=== PATIENT | female | born 1950 | race Caucasian/White ===

== ENCOUNTER → 2017-10-29 10:39 | Outpatient (CLI) | payer BC, MEDICARE, SELFPAY ==
--- NOTE | 2017-10-29 10:47 | MM_ITS ---
. MM Dig screening mamm BI w/CAD CAD Screening ORDERING PHYSICIAN : Trina Shaffer PATIENT AGE: 67 years GENDER: Female COMPARISON: Previous mammograms: August 2016, July 2016. Also bilateral breast ultrasound August 2016. INDICATION: TECHNIQUE: Standard CC and MLO images were obtained. R2 CAD reviewed. FINDINGS: Nodular areas right breast. Observed. Otherwise minimal fibroglandular elements a relatively low-density breast. Benign scattered calcifications bilaterally again noted. No new masses or architectural distortion no suspicious new calcifications. RIGHT BREAST:No new findings of significant concern on the right. 2 areas of Nodularity at the lateral right breast is again observed and similar to previous studies overall.. 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 Between the multiple images the more anterior slightly lobulated nodule with central lucency measures nearly 9 mm length.. Similar size when compared to the diagnostic spot view images and exam from of August 2016.. Similarly the second nodule just posterior to this measuring just less than 9 mm length appears stable in configuration and appearance. LEFT BREAST: Left breast appears stable as well. Areas of minimal density in the left seem to dissipate from one view to another. No worrisome or progressive findings.. ========IMPRESSION: No significant interval change RIGHT BREAST: Nodular densities at lateral right breast similar to previous studies 2016. Given the stability Follow-up in not over one year adequate. LEFT BREAST: Stable appearance with no new areas of concern. Follow-up in one year recommended BI-RADS Category: 2 Benign Finding(s) RECOMMENDED FOLLOW-UP: 1YR - 1 YEAR FOLLOW-UP (A letter has been sent to the patient regarding results of the study.)
== END ==
PROVIDERS: Family Provider Nurse Practitioner Acute Care; PCP Nurse Practitioner Family; Visit Provider Nurse Practitioner Family
DX: Z12.31 Encounter for screening mammogram for malignant neoplasm of breast (principal)
CPT/HCPCS: 77067

== ENCOUNTER → 2018-05-03 15:17 | Outpatient (CLI) | payer BC, SELFPAY ==
--- NOTE | 2018-05-03 15:22 | CT_ITS ---
EXAM: CT LUNG LOW DOSE WO CONTRAST COMPARISON: None HISTORY: Currently smoking. One pack per day for 50 years, = 50 pack-year history TECHNIQUE: Exam was performed on a GE Light Speed [address] scanner using 3.0 mGy CTDI. A low dose helical CT CHEST was performed on a multi-detector scanner. All CT scans at this facility use one or more dose reduction techniques, viz.: automated exposure control, ma/kV adjustment per patient size (including targeted exams where dose is matched to indication, i.e. head) or iterative reconstruction technique. The LDCT was performed in a facility that meets the criteria for the screening program. Data regarding this exam was submitted to ACR which is an approved registry. The order for this exam indicates that it came as a result of a lung cancer screening counseling shard decision-making visit that included all the elements required of such a visit including smoking cessation. The radiologist interpreting this exam meets the CMS criteria for the LDCT lung cancer screening program. The exam is reported using the Lung-RADS classification scale and reported to the ACR registry. NOTE: This study was performed for the specific purposes of lung cancer screening and is not an alternative to diagnostic chest CT. RADIATION DOSE: CTDI vol(CT dose Index-volume) = 2.9mGy DLP (Dose Length Product) = 109.42 mGy-cm FINDINGS: No suspicious or worrisome lung nodules are evident. No lung masses of concern. Indeterminate/Non-actionable Nodules(Category2): . Tiny 3.5 mm nodular density is seen at the periphery of the right upper lobe just above the minor fissure. May be a benign fissural nodule. One-year follow-up adequate here. LUNG PARENCHYMA Emphysema: Only scant questionable mild centrilobular emphysematous changes No significant airway disease. Calcified hilar nodes on the right reflect over elements disease. Minimal. No hilar or mediastinal adenopathy. Of significance. The heart is normal in size. Aorta normal caliber. The chest wall unremarkable. Upper abdomen. Left adrenal nodule. Measures low-density most compatible with Benign 15 mm left benign nonfunctioning adrenal adenoma. .. Suspect sludge in gallbladder . IMPRESSION: 1. Lung RADS Category: 2 Follow-upLDCT one year recommended Tiny 3.5 mm likely benign RUL nodule along the superior margin of minor fissure . No suspicious nodules or findings. 2. Only scant if any early emphysematous changes 3. 15 mm left adrenal nodule most compatible with benign low-density nonfunctioning adrenal adenoma. Can be followed RECOMMENDATIONS: 12 month LDCT follow-up
== END ==
PROVIDERS: Family Provider Nurse Practitioner Acute Care; PCP Nurse Practitioner Family; Visit Provider Nurse Practitioner Family
DX: Z12.2 Encounter for screening for malignant neoplasm of respiratory organs (principal); Z87.891 Personal history of nicotine dependence

== ENCOUNTER → 2018-11-22 14:03 | Outpatient (CLI) | payer BC, SELFPAY ==
--- NOTE | 2018-11-22 14:10 | MM_ITS ---
MM Dig screening mamm BI w/CAD ORDERING PHYSICIAN : Davina Fung PATIENT AGE: 68 years GENDER: Female COMPARISON: October 2017, August 2016 and July 2016 INDICATION: Routine: SCREENING no hormones for past 10 years. No new complaints noncontributory family history. TECHNIQUE: Standard CC and MLO images were obtained. R2 CAD reviewed. FINDINGS: . Minimal residual fibroglandular elements with fairly stable appearing nodular densities right breast. Scattered benign calcifications again seen in both breasts. RIGHT BREAST: No significant new findings Again see the 2 stable ovoid nodular densities at the lateral left breast-no significant change since 2016 exams. Reviewing prior ultrasound from 2016 one of these could be a fibroadenoma rather than cyst but given its long-term stability and similar measurements it can be followed Safely LEFT BREAST:. No new findings at the left breast. Subtle area of nodularity at the retroareolar region again observed and stable. Follow-up in one year. Benign calcifications again observed and stable. IMPRESSION: . No significant new findings. What appear to be benign densities and features have remain stable since 2016 and can be followed safely in one year.. Bilateral follow-up one year recommended-but should be encouraged and emphasized BI-RADS Category: 2 Benign Finding(s) RECOMMENDED FOLLOW-UP: 1YR 1 YEAR FOLLOW-UP (A letter has been sent to the patient regarding results of the study.)
== END ==
PROVIDERS: PCP Nurse Practitioner Family; Visit Provider Nurse Practitioner Family
DX: Z12.31 Encounter for screening mammogram for malignant neoplasm of breast (principal)
CPT/HCPCS: 77067

== ENCOUNTER → 2019-10-05 14:45 | Outpatient (CLI) | payer BC, SELFPAY ==
--- NOTE | 2019-10-05 15:04 | CT_ITS ---
PROCEDURE: CT LUNG SCREENING CLINICAL INDICATION: H/O NICOTINE DEPENDENCE COMPARISON: No exams were available for comparison TECHNIQUE: The exam was performed on a GE Light Speed [address] scanner using 2.90 mGy CTDI. A low dose helical CT CHEST was performed on a multi-detector scanner. All CT scans at the facility use one or more dose reduction, viz: automated exposure control, ma/kV adjustment per patient size (including targeted exams where dose is matched to indication, i.e. head), or iterative reconstruction technique. The LDCT was performed in a facility that meets the criteria for the screening program. Data regarding this exam was submitted to ACR which is an approved registry. The order for this exam indicates that it came as a result of a lung cancer screening counseling shard decision-making visit that included all the elements required of such a visit including smoking cessation. The radiologist interpreting this exam meets the CMS criteria for the LDCT lung cancer screening program. The exam is reported using the Lung-RADS classification scale and reported to the ACR registry. NOTE: This study was performed for the specific purposes of lung cancer screening and is not an alternative to diagnostic chest CT. RADIATION DOSE: CTDI vol(CT dose Index-volume) = 2.90mG DLP (Dose Length Product) = 94.55 mGcm Lung Rads Category: Two FINDINGS: There is an up to 3.7 millimeter indeterminate pulmonary nodule in the right lung apex image 10 series 4.2 millimeter on is seen in the lateral right upper lobe image 30 series 4. calcified bilateral hilar and subcarinal lymph nodes are noted indicating granulomatous disease. It is possible the pulmonary nodules are noncalcified granulomas. Calcified splenic granulomas are noted. A 1.9 x 1.9 centimeter left adrenal mass is noted. This measures -27. 8 HU and may represent a benign adenoma or adrenal myelolipoma OTHER FINDINGS: A small amount of coronary calcification is noted. IMPRESSION: Primary category 2 right-sided pulmonary nodules with a low likelihood of malignancy. Annual screening low-dose CT in 12 months is recommended for these lesions. Left adrenal mass probably benign. Dictated by: Fernando Shaw 10/05/2019 17:14 Electronically signed by Fernando Shaw in [place] 10/05/2019 17:14
== END ==
PROVIDERS: PCP Nurse Practitioner Family; Visit Provider Nurse Practitioner Family
DX: Z87.891 Personal history of nicotine dependence (principal); Z12.2 Encounter for screening for malignant neoplasm of respiratory organs

== ENCOUNTER → 2020-02-07 15:22 | Outpatient (CLI) | payer BC, SELFPAY ==
--- NOTE | 2020-02-07 15:27 | MM_ITS ---
PROCEDURE: MM DIG SCREENING MAMM BI W/CAD DIGITAL BREAST TOMOSYNTHESIS INCLUDED Patient Age:69Y CLINICAL INDICATION: SCREENING [employer] COMPARISON: [facility] DIG MAMM-SCREEN JOHN from 08/08/2016 [facility] DIG MAMM- JOHN ADD VIEWS from 08/26/2016 BR US BREAST-RT COMPLETE W/AXILLA from 08/26/2016 BL US BREAST-LT COMPLETE W/AXILLA from 08/26/2016 [facility] MM Dig screening mamm BI w/CAD from 10/29/2017 [facility] MM Dig screening mamm BI w/CAD from 11/22/2018 CT LUNG SCREENING from 10/05/2019 TECHNIQUE: Standard CC and MLO images were obtained. R2 CAD reviewed. Bilateral digital breast tomosynthesis included. FINDINGS: Mild/moderate density breast with residual fibroglandular elements at the central breast anteriorly behind nipple right breast... No suspicious calcifications; only scattered small benign-appearing dense punctate calcifications bilaterally. A few stable larger calcifications as well. Right breast two stable ovoid nodular densities lateral right breast. Each measuring nearly 9 mm maximally with no significant change since studies dating back to 2016. Also note on today's tomosynthesis both these nodules demonstrate overall fairly smooth margin of supporting benign feature. Previous ultrasound suggested probable fibroadenoma 2016 Left breast. No new areas of concern. Stable larger benign round dense calcifications. Not of concern. The stable architecture. No mass lesion IMPRESSION: . Stable bilateral mammogram. No significant new findings. Two stable ovoid nodular densities lateral left breast unchanged since 2016 can be followed safely Bilateral follow-up 1 year recommended . BI-RAD Category: 2 Benign Finding(s) FOLLOW-UP: 1YR 1 Year Follow-up (A letter has been sent to the patient regarding results of the study.) Dictated by: Jose J Thompson MD 02/14/2020 15:01 Electronically signed by Jose J Thompson MD in [place] 02/14/2020 15:01
== END ==
PROVIDERS: PCP Nurse Practitioner Family; Visit Provider Nurse Practitioner Family
DX: Z12.31 Encounter for screening mammogram for malignant neoplasm of breast (principal)
CPT/HCPCS: 77063; 77067

== ENCOUNTER → 2020-10-03 11:11 | Outpatient (CLI) | payer MEDICARE, BC, OTHER, SELFPAY ==
[2020-10-03 13:30] LABS: C-Reactive Protein 5.3 mg/L (0-4)
[2020-10-03 15:31] LABS: Erythrocyte Sedimentation Rate 25 mm/hr (0-30)
[2020-10-05 11:32] LABS: RA Latex Turbid. <10.0 IU/mL (0.0-13.9)
[2020-10-07 14:07] LABS: QuantiFERON-TB Gold Plus Negative (Negative)
[2020-10-08 11:14] LABS: Antinuclear Antibodies, IFA Negative (.)
== END ==
PROVIDERS: Visit Provider Ophthalmology
DX: H20.042 Secondary noninfectious iridocyclitis, left eye (principal)
CPT/HCPCS: 36415; 85651; 86038; 86140; 86431; 86480

== ENCOUNTER → 2021-02-19 12:59 | Outpatient (CLI) | payer MEDICARE, OTHER, SELFPAY ==
--- NOTE | 2021-02-19 13:04 | MM_ITS ---
PROCEDURE INFORMATION: Exam: MG Screening 3D Mammography Exam date and time: 02/19/2021 1:04 PM Age: 70 years old Clinical indication: Encounter for screening mammogram for malignant neoplasm of breast TECHNIQUE: Imaging protocol: Screening tomosynthesis and 2D mammography including computer-aided detection (CAD) when performed. COMPARISON: 1. MG MM DIG SCREENING MAMM BI W/CAD 02/07/2020 3:35 PM 2. MG [facility] MM Dig screening mamm BI w/CAD 11/22/2018 2:37 PM FINDINGS: MAMMOGRAPHY: Breast composition: The breast tissue is composed of scattered areas of fibroglandular density. Mass: None. Architectural distortion: None. Calcifications: No suspicious calcifications. Asymmetric density: None. Skin thickening: None. Axillary adenopathy: None. IMPRESSION: No mammographic evidence of malignancy. Annual screening is recommended unless otherwise clinically indicated. ASSESSMENT: BI-RADS Category 1: Negative
--- NOTE | 2021-02-19 13:04 | XR_ITS ---
PROCEDURE: XR DEXA AXIAL SKELETON CLINICAL HISTORY: OSTEOPOROSIS COMPARISON: CR BONE3 BONE DENSITOMETRY(HIP:LT SPINE from 08/08/2016 FINDINGS: The right hip BMD is 0.651 with a T-score of -1.8. The left hip BMD is 0.700 with a T-score of -2.0. The lumbar spine BMD is 0.787 with a T-score of -2.4. Previously the lowest bone density was in the lumbar spine with a T-score -2.5. IMPRESSION: This patient is considered osteopenic according to the World Health Organization criteria. Bone density is between 10 and 25 percent below young normal. Fracture risk is moderate. Treatment is advised. Based on these results a follow-up exam is recommended in 2 year. Dictated by: Bart Bullock MD 02/20/2021 07:44 Bart Bullock MD in [place] 02/20/2021 07:44
--- NOTE | 2021-02-19 13:05 | CT_ITS ---
PROCEDURE: CT LUNG SCREENING CLINICAL INDICATION: H/O NICOTINE DEPENDENCE Current smoker 55 pack year smoking history COMPARISON: MG [facility] MM Dig screening mamm BI w/CAD from 10/29/2017 [facility] MM Dig screening mamm BI w/CAD from 11/22/[address] LUNG SCREENING from 10/05/2019 MG MM DIG SCREENING MAMM BI W/CAD from 02/19/2021 TECHNIQUE: The exam was performed on a [employer] Speed [address] scanner using 2.90 mGy CTDI. A low dose helical CT CHEST was performed on a multi-detector scanner. All CT scans at the facility use one or more dose reduction, viz: automated exposure control, ma/kV adjustment per patient size (including targeted exams where dose is matched to indication, i.e. head), or iterative reconstruction technique. The LDCT was performed in a facility that meets the criteria for the screening program. Data regarding this exam was submitted to ACR which is an approved registry. The order for this exam indicates that it came as a result of a lung cancer screening counseling shard decision-making visit that included all the elements required of such a visit including smoking cessation. The radiologist interpreting this exam meets the CMS criteria for the LDCT lung cancer screening program. The exam is reported using the Lung-RADS classification scale and reported to the ACR registry. NOTE: This study was performed for the specific purposes of lung cancer screening and is not an alternative to diagnostic chest CT. RADIATION DOSE: CTDI vol(CT dose Index-volume) = 2.90mG DLP (Dose Length Product) = 96.38 mGcm FINDINGS: Previously noted 4 mm nodule in the right apex is smaller barely perceptible. 4 mm nodule in the right upper lobe laterally unchanged. 4 mm nodule right middle lobe adjacent to the minor fissure unchanged. Mild diffuse bronchial thickening. Calcified hilar lymph nodes. OTHER FINDINGS: Coronary artery calcifications. No change low-dense left adrenal nodule consistent with an adenoma at 2 cm. There are 2 nodular opacities in the lateral aspect of the right breast which appear stable by previous mammogram. IMPRESSION: Lung-RADS Category 2 Benign Appearance or Behavior Follow-up: Continue annual screening with LDCT in 12 months Dictated by: Bart Bulolck MD 03/04/2021 08:51 Bart Bullock MD in [place] 03/04/2021 08:51
== END ==
PROVIDERS: PCP Nurse Practitioner Family; Visit Provider Nurse Practitioner Family
DX: Z12.31 Encounter for screening mammogram for malignant neoplasm of breast (principal); Z87.891 Personal history of nicotine dependence; Z12.2 Encounter for screening for malignant neoplasm of respiratory organs; M81.0 Age-related osteoporosis without current pathological fracture
CPT/HCPCS: 71271; 77063; 77067; 77080

== ENCOUNTER 2021-05-05 16:37 | Emergency (ER) | payer MEDICARE, OTHER, SELFPAY ==
[2021-05-05 18:00] VITALS: BP 121/86; PULSE 70; RESP 16; TEMP 36.9; O2SAT 100; BMI 24.4
--- NOTE | 2021-05-05 18:20 | HMH.EDUTC ---
[facility] Disposition Clinical Impression: COVID-19 virus test result unknown Disposition: Home, Self-Care Condition on Discharge: Good Instructions: DI for COVID-19 (Suspected or Confirmed ), Preventing the Spread of Coronavirus Discharge Instructions Additional Instructions: covid swab was sent to lab, call later tomorrow for results. self isolate until test results are known to be negative Referrals: Davina Fung [Primary Care Provider] - Time of Disposition: 18:31 Medical Decision Making - Tristen Inquiry Pt receiving controlled substance: No Vital Signs: 05/05/21 18:00 05/05/21 18:27 Temperature 98.5 F 98.5 F Temperature Source Oral Pulse Rate 70 Pulse Rate [Right Brachial] 70 Respiratory Rate 16 16 Blood Pressure 121/86 Blood Pressure [Right Arm] 121/86 Blood Pressure Mean [Right Arm] 97 Blood Pressure Source [Right Arm] Automatic Cuff Blood Pressure Position [Right Arm] Sitting 02 Sat by Pulse Oximetry 100 Oxygen Delivery Method Room Air Orders (Tests/Meds): ORDERS Category Date Time Status Covid-19 Nasal PCR ([facility]) Routine Lab 05/05/21 18:02 Received [facility] HPI - General Chief complaint: Urgent Treatment Center Stated complaint: covid test Time Seen by Provider: 05/05/21 18:20 Mode of Arrival: Ambulatory Source of Information: Patient Limitations: No Limitations Description of Symptoms (Recalled from Triage Doc. by RN): COVID TEST D/T EXPOSURE HEENT Symptoms (Recalled from RN notes): No Resp Symptoms (Recalled from RN notes): No Skin Symptoms (Recalled from RN notes): No MS Symptoms (Recalled from RN notes): No Functional Status (Recalled from RN notes): WNL - History of Present Illness Provider Complaint: 71 yr old female presents for covid test r/t exposer last pm. no symptoms - Related Data Allergies Allergy/AdvReac Type Severity Reaction Status Date / Time Penicillins [PENICILLINS] Allergy Intermediate I-RASH Verified 05/05/21 18:20 - Worker's Comp Is this a Worker's Comp case?: No [facility] History - Hepatitis A Screen Drug use history?: No High risk sexual behaviors?: No History of sexually transmitted infection?: No Currently employed?: No Childcare worker?: No Do you have indoor plumbing?: Yes Do you have electricity?: Yes Attestation statement:: This patient has been screened for Hepatitis A risk factors. I have reviewed the patient's past medical history: Yes ROS Obtained: Yes Systems reviewed as appropriate & no additional complaints - Constitutional Constitutional: Reports system reviewed and no additional complaints, except as docu, Denies fever(s) - Eyes Eyes: Reports system reviewed and no additional complaints, except as docu, Denies blurry vision - ENT Ears, Nose, Mouth, and Throat: Reports system reviewed and no additional complaints, except as docu, Denies abnormal hearing - Cardiovascular Cardiovascular: Reports system reviewed and no additional complaints, except as docu, Denies chest pain - Respiratory Respiratory: Reports system reviewed and no additional complaints, except as docu, Denies cough - Gastrointestinal Gastrointestingal: Reports: system reviewed and no additional complaints, except as docu. Denies: abdominal pain - Genitourinary Female Genitourinary: Reports system reviewed and no additional complaints, except as docu - Musculoskeletal Musculoskeletal: Reports system reviewed and no additional complaints, except as docu, Denies joint pain - Integumentary/Breasts Skin/Breast: Reports system reviewed and no additional complaints, except as docu, Denies rash - Neurologic Neurologic: Reports system reviewed and no additional complaints, except as docu, Denies dizziness - Endocrine Endocrine: Reports system reviewed and no additional complaints, except as docu, Denies fatigue - Hematologic/Lymphatic Henatologic/Lymphatic: Reports system reviewed and no additional complaints, except as docu, Denies lymphadenopathy
[2021-05-05 18:27] VITALS: BP 121/86; PULSE 70; RESP 16; TEMP 36.9; O2SAT 100
== END 2021-05-05 18:34 | disposition home or self-care (01) ==
PROVIDERS: Emergency Provider Nurse Practitioner Family; PCP Nurse Practitioner Family
DX: Z20.822 Contact with and (suspected) exposure to COVID-19 (principal); Z88.0 Allergy status to penicillin
CPT/HCPCS: G0463; 99203; U0003

== ENCOUNTER → 2021-05-16 12:11 | Outpatient (CLI) | payer MEDICARE, OTHER, SELFPAY ==
[2021-05-16] VITALS (10 sets, daily range): BP systolic 120–147; BP diastolic 55–103; PULSE 69–75; RESP 16–18; TEMP 36.1–36.3; O2SAT 95–99
== END ==
PROVIDERS: PCP Nurse Practitioner Family; Visit Provider Nurse Practitioner Family
DX: U07.1 COVID-19 (principal)
CPT/HCPCS: 96365

== ENCOUNTER → 2022-02-20 15:06 | Outpatient (CLI) | payer MEDICARE, OTHER, SELFPAY ==
--- NOTE | 2022-02-20 15:12 | CT_ITS ---
FINAL REPORT CLINICAL HISTORY: CURRENT SMOKER/SCREENING 49 years , pack a day COMPARISON: February 19, 2021 and May 03, 2018 FINDINGS: Low-Dose Chest CT CTDI vol (mGy): 2.90 DLP (mGy-cm): 90.90 Axial images were obtained from the lung apex to the mid abdomen by computed tomography. Low-dose protocol was utilized. FINDINGS: CHEST: There is no axillary adenopathy. There is no hilar or mediastinal adenopathy. The heart is proper size. 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 Small nodules in the lateral right breast are stable. There is no pericardial or pleural effusion. Limited images of the upper abdomen are unremarkable. Lung window images demonstrate a 4 mm nodule near the minor fissure that is stable since 2018. No new mass or nodule is identified. There is mild diffuse bronchial wall thickening consistent with bronchitis. IMPRESSION: 4 mm nodule near the minor fissure, stable since 2018. No new mass or nodule identified. Mild diffuse bronchial thickening consistent with bronchitis. Lung RADS category 1. Recommend 12 month follow-up low-dose chest CT. Reviewed, Interpreted and Dictated by Garrett Fernandez III, MD Transcribed by Ayde Chavez Authenticated and [facility]
--- NOTE | 2022-02-20 15:13 | MM_ITS ---
PROCEDURE INFORMATION: Exam: MG Bilateral Screening 3D Mammography Exam date and time: 02/20/2022 3:51 PM Age: 71 years old Clinical indication: Screening examination TECHNIQUE: Imaging protocol: Bilateral Screening tomosynthesis and 2D mammography including computer-aided detection (CAD) when performed. COMPARISON: 1. MG MM DIG SCREENING MAMM BI W/CAD 02/19/2021 1:28 PM 2. MG MM DIG SCREENING MAMM BI W/CAD 02/07/2020 3:35 PM FINDINGS: MAMMOGRAPHY: Breast composition: There are scattered areas of fibroglandular density. Mass: None. Architectural distortion: None. Calcifications: No suspicious calcifications. Asymmetric density: None. Skin thickening: None. Axillary adenopathy: None. IMPRESSION: No mammographic evidence of malignancy. Annual screening is recommended unless otherwise clinically indicated. ASSESSMENT: BI-RADS Category 1: Negative
== END ==
PROVIDERS: PCP Nurse Practitioner Family; Visit Provider Nurse Practitioner Family
DX: Z12.31 Encounter for screening mammogram for malignant neoplasm of breast (principal); Z87.891 Personal history of nicotine dependence; Z12.2 Encounter for screening for malignant neoplasm of respiratory organs
CPT/HCPCS: 71271; 77063; 77067

== ENCOUNTER → 2023-03-24 13:09 | Outpatient (CLI) | payer MEDICARE, OTHER, SELFPAY ==
--- NOTE | 2023-03-24 13:13 | MM_ITS ---
PROCEDURE INFORMATION: Exam: MG Bilateral Screening 3D Mammography Exam date and time: 03/24/2023 1:19 PM Age: 72 years old Clinical indication: Screening examination; No personal or family history of breast cancer TECHNIQUE: Imaging protocol: Bilateral Screening tomosynthesis and 2D mammography including computer-aided detection (CAD) when performed. COMPARISON: 1. MG MM DIG SCREENING MAMM BI W/CAD 02/20/2022 3:51 PM 2. MG MM DIG SCREENING MAMM BI W/CAD 02/19/2021 1:28 PM FINDINGS: MAMMOGRAPHY: Breast composition: There are scattered areas of fibroglandular density. Mass: No new or suspicious masses Architectural distortion: None. Calcifications: No suspicious calcifications. Asymmetric density: None. Skin thickening: None. Axillary adenopathy: None. IMPRESSION: No mammographic evidence of malignancy. Annual screening is recommended unless otherwise clinically indicated. ASSESSMENT: BI-RADS Category 1: Negative
== END ==
PROVIDERS: PCP Nurse Practitioner Family; Visit Provider Nurse Practitioner Family
DX: Z12.31 Encounter for screening mammogram for malignant neoplasm of breast (principal)
CPT/HCPCS: 77063; 77067

== ENCOUNTER 2023-03-26 14:02 | Emergency (ER) | payer MEDICARE, OTHER, SELFPAY ==
[2023-03-26] VITALS (9 sets, daily range): BP systolic 134–198; BP diastolic 46–178; PULSE 63–76; RESP 16–20; TEMP 36.8; O2SAT 94–97; BMI 23.2
--- NOTE | 2023-03-26 14:55 | CT_ITS ---
FINAL REPORT CLINICAL HISTORY: Weakness, dizziness, headache on right side last night FINDINGS: Axial images of the head were obtained without contrast. Coronal reformatted images were also obtained. This study was performed with techniques to keep radiation doses as low as reasonably achievable (ALARA). Individualized dose reduction techniques using automated exposure control or adjustment of mA and/or kV according to the patient''s size were employed. There is generalized age-appropriate atrophy. Periventricular low-attenuation areas are seen consistent with moderate chronic ischemic changes. There is no evidence of intracranial hemorrhage or mass. There is no evidence of acute infarct. There is no evidence of shift of the midline structures. No skull abnormality is seen on the bone window images. IMPRESSION: Atrophy and moderate periventricular chronic ischemic changes. No acute intracranial abnormality identified. Reviewed, Interpreted and Dictated by Garrett Fernandez III, MD Transcribed by Mili Randolph Authenticated and [facility]
--- NOTE | 2023-03-26 15:04 | ECG_ITS ---
APPROVED REPORT Exam: Resting ECG HR:66 bpm ECG Measurements Heart Rate 66 AXES DE 198 P 71 QRSd 105 QRS 78 QT 423 T 68 QTc 436 Conclusion SINUS RHYTHM SEPTAL MYOCARDIAL INFARCTION , PROBABLY OLD [40+ ms Q WAVE IN V1/V2] ABNORMAL ECG UNCONFIRMED REPORT Electronically signed by : Clayton Morales MD 03/27/2023 17:17:35
--- NOTE | 2023-03-26 15:08 | PC.NURSE ---
patient ambulatory to restroom without complications
--- NOTE | 2023-03-26 15:13 | PC.NURSE ---
UA sent to lab
[2023-03-26 15:18] LABS: Microscopic, Urine URINE MICROSCOPIC (MICROSCOPIC)
[2023-03-26 15:24] LABS: Appearance,Urine CLEAR (Clear); Bilirubin,Urine Negative (Negative); Blood, Urine Negative (Negative); Color,Urine YELLOW (Yellow); Glucose,Urine (UA) Negative (Negative); Ketones,Urine Negative (Negative); Leukocyte Esterase,Urine TRACE (Negative); Nitrate,Urine Negative (Negative); Protein,Urine Negative (Negative); Specific Gravity, Urine 1.015 (1.005-1.030)
[2023-03-26 15:34] LABS: Basophils # 0.1 K/mm3 (0-0.2); Basophils % 0.6 % (0.1-2.0); Eosinophils # 0.4 K/mm3 (0.0-0.4); Eosinophils % 4.4 % (0.1-12.0); Hemoglobin 10.8 g/dL (12.2-16.2); Lymphocytes # 2.9 K/mm3 (0.7-4.5); Mean Corpuscular HGB Conc 31.8 g/dL (31.8-35.4); Mean Corpuscular Hemoglobin 28.1 pg (27.0-31.2); Mean Corpuscular Volume 88.2 fl (81-99); Mean Platelet Volume 7.7 fl (7.4-10.4); Monocytes # 0.6 K/mm3 (0.1-1.0); Monocytes % 6.7 % (1.7-9.3); Neutrophils # 4.4 K/mm3 (1.8-7.8); Neutrophils % 53.3 % (37.0-80.0); Platelet Count 401 K/mm3 (142-424); Red Blood Count 3.85 M/mm3 (4.20-5.40); Red Cell Distribution Width 15.3 % (11.5-17.5); White Blood Count 8.2 K/mm3 (4.8-10.8)
[2023-03-26 15:36] LABS: Squamous Epithelial Cell,Urine Occasional #/hpf (0-5); WBC,Urine Occasional #/hpf (0-3)
[2023-03-26 15:38] LABS: Chloride 95 mmol/L (98-107); Potassium 3.8 mmoL/L (3.5-5.1); Sodium 133 mmol/L (136-145)
[2023-03-26 15:41] LABS: Alanine Aminotransferase 20 U/L (12-78); Albumin Level 4.1 g/dl (3.5-5.0); Albumin/Globulin Ratio 1.4 (1.1-1.8); Alkaline Phosphatase 82 U/L (38-126); Anion Gap 9.8 mEq/L (5-15); Aspartate Amino Transferase 28 U/L (14-36); Blood Urea Nitrogen 27 mg/dl (7-17); Calcium 9.1 mg/dl (8.4-10.2); Carbon Dioxide 32 mmol/L (22.0-30.0); Creatinine Clearance Estimated 37 mL/min (50-200); Estimated Glomerular Filt Rate 44 ml/min (>60); GFR (African American) 53 ML/MIN (>60); Globulin 2.9 g/dL (1.3-3.2); Glucose 132 mg/dl (74-100)
[2023-03-26 15:43] LABS: Bilirubin,Total < 0.1 mg/dl (0.2-1.3)
--- NOTE | 2023-03-26 17:52 | PC.NURSE ---
Okay to eat per . Ice water provided.
--- NOTE | 2023-03-26 19:02 | HMH.EDGENADL ---
Discharge Plan Disposition Patient Disposition: Home, Self-Care Condition: Good Referrals Follow up/Referrals: Davina Fung [Primary Care Provider] - See instructions Clinical Impressions Clinical Impression: Dizziness Discharge ED Provider: Kvng Santiago General Adult HPI General Chief complaint: Weakness Stated complaint: Dizzy, weakness Time Seen by Provider: 03/26/23 17:22 Mode of Arrival: Ambulatory Source of Information: Patient Limitations: No Limitations Description of Symptoms (Recalled from ER Triage Doc. by RN): pt to ed c/o generalized weakness and dizziness that started on thursday and progressed into thursday. pt states she has noticed since thursday she has had to hold onto things to get around and feels like her gait has been unsteady. pt denies any numbness/tingling to her extremities or any episodes of memory loss. History of Present Illness HPI narrative: 72yo F presents to the ER secondary to generalized weakness and dizziness. Patient reports she had symptoms on Thursday but felt better on Thursday and then had symptoms return on Thursday today. Reports that she has had a roaring sensation/noise in her left ear for several weeks to months. She hears it all the time. Denies any pain. Denies any recent illness, fever, nausea/vomit/diarrhea. Reports a history of vertigo in the very remote past Related Data Allergies Allergy/AdvReac Type Severity Reaction Status Date / Time Penicillins [PENICILLINS] Allergy Intermediate I-RASH Verified 05/16/21 12:39 [facility] Disclaimer: The information contained in this section may have been updated after the patient was seen, as this information can be updated by other users. Social History Smoking Status: Current every day smoker alcohol intake: never current occupational status: other Travel in the last 8 weeks: None ROS Obtained: Yes Systems reviewed as appropriate & no additional complaints except as documented Physical Exam General General appearance: alert and in no apparent distress Head Head exam: atraumatic and normocephalic Eye Eye exam: Present normal appearance, PERRL and EOMI; Absent scleral icterus ENT ENT exam: Present normal exam, normal oropharynx and mucous membranes moist Expanded ENT Exam External ear exam: Present normal external inspection and other (Normal TMs bilateral) Mouth exam: Present normal external inspection Teeth exam: Present normal inspection Throat exam: Present normal inspection Neck Neck exam: Present normal inspection, full ROM and trachea midline Chest Chest inspection: Present symmetric chest wall rise Respiratory Respiratory exam: Present normal lung sounds bilaterally; Absent respiratory distress Cardiovascular Cardiovascular exam: Present regular rate, normal rhythm and normal heart sounds Abdominal Exam Abdominal exam: Present soft; Absent distention, tenderness or guarding Extremities Exam Extremities exam: Present normal capillary refill; Absent tenderness or edema Neurological Exam Neurological exam: Present alert, oriented X3 and CN II-XII intact Psychiatric Psychiatric exam: Present normal affect Skin Skin exam: Present warm and dry Medical Decision Making Tristen Inquiry Pt receiving controlled substance: No Vital Signs: 03/26/23 14:08 03/26/23 14:06 03/26/23 14:30 Temperature 98.2 F Temperature Source Oral Pulse Rate 76 72 Pulse Rate [Left Radial] 73 Respiratory Rate 20 Blood Pressure 138/50 L 142/59 H Blood Pressure [Right Arm] 138/50 L Blood Pressure Mean 82 86 Blood Pressure Mean [Right Arm] 79 02 Sat by Pulse Oximetry 94 L 97 95 Oxygen Delivery Method Room Air 03/26/23 15:00 03/26/23 15:17 03/26/23 15:22 Temperature Temperature Source Pulse Rate 67 65 63 Pulse Rate [Left Radial] Respiratory Rate Blood Pressure 142/64 H 198/178 H 134/46 L Blood Pressure [Right Arm] Blood Pressure
--- NOTE | 2023-03-26 19:17 | PC.NURSE ---
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
== END 2023-03-26 19:24 | disposition home or self-care (01) ==
PROVIDERS: Emergency Provider Family Medicine; PCP Nurse Practitioner Family
DX: R42 Dizziness and giddiness (principal); R53.1 Weakness; E87.1 Hypo-osmolality and hyponatremia; D64.9 Anemia, unspecified; F17.200 Nicotine dependence, unspecified, uncomplicated
CPT/HCPCS: 70450; 80053; 81001; 85025; 93005; 93041; 96360; 96361; 99285

== ENCOUNTER → 2023-09-01 14:10 | Outpatient (CLI) | payer MEDICARE, OTHER, SELFPAY ==
--- NOTE | 2023-09-01 14:21 | US_ITS ---
FINAL REPORT CLINICAL HISTORY: . FINDINGS: ULTRASOUND BLADDER There is a prevoid bladder volume of 22 mL. Postvoid there was 2.6 mL. No bladder masses are identified. IMPRESSION: Minimal postvoid residual. Reviewed, Interpreted and Dictated by Rick Zamudio MD Transcribed by Ray Darby Authenticated and [facility]
--- NOTE | 2023-09-01 14:21 | US_ITS ---
FINAL REPORT TECHNIQUE: Sonographic images were obtained of the retroperitoneum. CLINICAL HISTORY: . FINDINGS: The right kidney measures 10.2 cm. The left kidney measures 10.7 cm. There is a 1.4 cm cyst in the superior pole of the left kidney. The spleen measures 7 cm. IMPRESSION: Simple left renal cyst. Reviewed, Interpreted and Dictated by Rick Zamudio MD Transcribed by Ray Darby Authenticated and [facility]
== END ==
LOC: RAD 14:11
PROVIDERS: PCP Nurse Practitioner Family; Visit Provider Hospitalist
DX: I10 Essential (primary) hypertension (principal); N28.9 Disorder of kidney and ureter, unspecified
CPT/HCPCS: 76770; 76857

== ENCOUNTER 2024-04-11 15:09 | Outpatient (CLI) | payer MEDICARE, OTHER, SELFPAY ==
--- NOTE | 2024-04-11 15:13 | MM_ITS ---
PROCEDURE INFORMATION: Exam: MG Bilateral Screening 3D Mammography Exam date and time: 04/11/2024 3:07 PM Age: 73 years old Clinical indication: Screening examination TECHNIQUE: Imaging protocol: Bilateral Screening tomosynthesis and 2D mammography including computer-aided detection (CAD) when performed. COMPARISON: 1. MG MM DIG SCREENING MAMM BI W/CAD 03/24/2023 1:19 PM 2. MG MM DIG SCREENING MAMM BI W/CAD 02/20/2022 3:51 PM 3. MG MM DIG SCREENING MAMM BI W/CAD 02/19/2021 1:28 PM FINDINGS: MAMMOGRAPHY: Breast composition: There are scattered areas of fibroglandular density. Mass: No suspicious masses. Architectural distortion: No suspicious distortion. Calcifications: No suspicious calcifications. Asymmetric density: None. Skin thickening: None. Axillary adenopathy: None. IMPRESSION: No mammographic evidence of malignancy. Annual screening is recommended unless otherwise clinically indicated. ASSESSMENT: BI-RADS Category 1: Negative
--- NOTE | 2024-04-11 15:13 | CT_ITS ---
FINAL REPORT TECHNIQUE: Thin section axial images were obtained from the lung apices to the upper abdomen by computed tomography. Reformatted images were obtained and reviewed. This study was performed with techniques to keep radiation doses al low as reasonably achievable (ALARA). Individualized dose reduction techniques using automated exposure control or adjustment of mA and/or kV according to the patient's size were employed. CLINICAL HISTORY: SCREENING current smoker 1 ppd x 50 years COMPARISON: 02/20/2022 FINDINGS: CHEST CT LOW DOSE 74-year-old female, current smoker, [id number] history. CTDI vol (mGy): 2.90 DLP (mGy-cm): 96.38 There is no axillary adenopathy. There is no mediastinal or hilar mass or adenopathy. The heart is normal in size. There is no pericardial or pleural effusion. Lung window images demonstrate a 4 mm nodule in the inferior right upper lobe, also seen on the prior exam of 2021 and stable in appearance. This nodule has apparently been unchanged on multiple LDCT exams since 2018.. Limited images of the upper abdomen are unremarkable. IMPRESSION: Lung-RADS category 1. Recommend 12 month follow up low dose chest CT. Reviewed, Interpreted and Dictated by Rick Zamudio MD Transcribed by Galilea Guan Authenticated and [facility]
== END 2024-04-11 23:59 | disposition home or self-care (01) ==
LOC: RAD 15:10
PROVIDERS: PCP Nurse Practitioner Family; Visit Provider Nurse Practitioner Family
DX: Z12.31 Encounter for screening mammogram for malignant neoplasm of breast (principal); Z12.2 Encounter for screening for malignant neoplasm of respiratory organs; F17.210 Nicotine dependence, cigarettes, uncomplicated
CPT/HCPCS: 71271; 77063; 77067

== ENCOUNTER 2024-12-19 12:49 | Outpatient (CLI) | payer MEDICARE, OTHER, SELFPAY ==
[2024-12-19] MEDS: SODIUM CHLORIDE 0.9% 10ML FLUSH SYRINGE 10 ML IV (13:25)
[2024-12-19] MEDS: SODIUM CHLORIDE 0.9% 50ML BAG 50 ML IV (13:25)
[2024-12-19 13:26] VITALS: BP 160/77; PULSE 85; RESP 16; TEMP 36.6; O2SAT 97
[2024-12-19] MEDS: ferumoxytoL 510 MG in 0.9 % SODIUM CHLORIDE 50 ML 268 MG IV (13:26)
[2024-12-19 13:50] VITALS: BP 148/82; PULSE 75; RESP 14; TEMP 36.6; O2SAT 98
== END 2024-12-19 13:55 | disposition home or self-care (01) ==
LOC: INF 12:50
PROVIDERS: PCP Nurse Practitioner Family; Visit Provider Hospitalist
DX: D50.9 Iron deficiency anemia, unspecified (principal)
CPT/HCPCS: 96374; Q0138

== ENCOUNTER 2024-12-22 12:57 | Outpatient (CLI) | payer MEDICARE, OTHER, SELFPAY ==
[2024-12-22] MEDS: ferumoxytoL 510 MG in 0.9 % SODIUM CHLORIDE 50 ML 268 MG IV (13:05)
[2024-12-22] MEDS: SODIUM CHLORIDE 0.9% 50ML BAG 50 ML IV (13:06)
[2024-12-22] MEDS: SODIUM CHLORIDE 0.9% 10ML FLUSH SYRINGE 10 ML IV (13:06)
== END 2024-12-22 13:35 | disposition home or self-care (01) ==
LOC: INF 12:58
PROVIDERS: PCP Nurse Practitioner Family; Visit Provider Hospitalist
DX: R53.1 Weakness (principal); R42 Dizziness and giddiness
CPT/HCPCS: 96374; Q0138

== ENCOUNTER 2025-01-01 17:41 | Emergency (ER) | payer MEDICARE, OTHER, SELFPAY ==
[2025-01-01 17:54] VITALS: BP 131/51; PULSE 75; RESP 20; TEMP 37; O2SAT 95; BMI 22.2
[2025-01-01 18:24] LABS: Basophils % 0.4 % (0.1-2.0); Eosinophils # 0.2 Kmm3 (0.0-0.4); Eosinophils % 4.2 % (0.1-12.0); Hematocrit 31.2 % (37.0-47.0); Hemoglobin 10.5 g/dL (12.2-16.2); Lymphocytes # 1.6 K/mm3 (0.7-4.5); Lymphocytes % 28.6 % (10-50); Mean Corpuscular HGB Conc 33.7 g/dL (31.8-35.4); Mean Corpuscular Hemoglobin 30.3 pg (27.0-31.2); Mean Corpuscular Volume 90.2 fl (81-99); Mean Platelet Volume 9.8 fl (7.4-10.4); Monocytes # 0.7 K/mm3 (0.1-1.0); Monocytes % 12.2 % (1.7-9.3); Neutrophils % 54.1 % (37.0-80.0); Nucleated Red Blood Cells # 0 10^3/uL; Nucleated Red Blood Cells % 0 %; Platelet Count 288 K/mm3 (142-424); Red Blood Count 3.46 M/mm3 (4.20-5.40); Red Cell Distribution Width 17.3 % (11.5-17.5); Red Cell Distribution Width-SD 56.4 fL; White Blood Count 5.5 K/mm3 (4.8-10.8)
[2025-01-01 18:27] LABS: VBG Base Excess -2.7 mmol/L (-2.4-2.3); VBG HCO3 23.2 mmol/L (23-30); VBG Oxygen Saturation 83.6 % (50-70); VBG PCO2 44.8 mmol/L (35-51); VBG PH 7.33 mmol/L (7.31-7.41); VBG PO2 50.7 mmol/L (28-40); VBG Total CO2 24.6 mmol/L (23-27)
[2025-01-01 18:28] LABS: Lactate Venous 3.4 mmol/L (0.4-2.0)
[2025-01-01 18:31] LABS: Albumin Level 3.9 g/dl (3.5-5.0); Chloride 100 mmol/L (98-107); Potassium 4.6 mmoL/L (3.5-5.1); Sodium 135 mmol/L (136-145)
[2025-01-01 18:33] LABS: Blood Urea Nitrogen 35 mg/dl (7-17); Creatinine Clearance Estimated 20 mL/min (50-200); Estimated Glomerular Filt Rate 24 ml/min (>60); GFR (African American) 29 ML/MIN (>60)
[2025-01-01 18:34] LABS: Alanine Aminotransferase 26 U/L (12-78); Albumin/Globulin Ratio 1.5 (1.1-1.8); Alkaline Phosphatase 65 U/L (38-126); Anion Gap 15.6 mEq/L (5-15); Aspartate Amino Transferase 31 U/L (14-36); Calcium 8.9 mg/dl (8.4-10.2); Carbon Dioxide 24 mmol/L (22.0-30.0); Creatine Kinase 41 U/L (30-135); Globulin 2.6 g/dL (1.3-3.2); Glucose 177 mg/dl (74-100); Phosphorous 4.8 mg/dl (2.5-4.5); Total Protein,Serum 6.5 g/dl (6.3-8.2)
[2025-01-01 18:35] LABS: Magnesium 1.3 mg/dl (1.6-2.3)
[2025-01-01 18:36] LABS: Bilirubin,Total 0.1 mg/dl (0.2-1.3)
[2025-01-01] MEDS: MAGNESIUM SULFATE IN WATER 2 GM/50 ML PIGGYBACK IV (18:46)
[2025-01-01] MEDS: LACTATED RINGERS 1000ML 500 ML 999 ML IV (18:46)
--- NOTE | 2025-01-01 19:08 | PC.NURSE ---
gave shift report to brodie welsh and john welsh
--- NOTE | 2025-01-01 19:29 | HMH.EDGENADL ---
Discharge Plan Disposition Patient Disposition: Home, Self-Care Condition: Good Prescriptions Prescriptions: No Action losartan 50 mg tablet 100 mg PO DAILY Patient Comments: TAKE 2 TABLETS BY MOUTH ONCE DAILY hydrochlorothiazide 50 mg tablet 50 mg PO DAILY Patient Comments: TAKE 1 TABLET BY MOUTH ONCE DAILY amlodipine 5 mg tablet 5 mg PO DAILY Patient Comments: TAKE 1 TABLET BY MOUTH ONCE DAILY amitriptyline 25 mg tablet 25 mg PO QID Patient Comments: TAKE 1 TABLET BY MOUTH 4 TIMES DAILY pantoprazole 40 mg tablet,delayed release (DR/EC) 40 mg PO BID Patient Comments: TAKE 1 TABLET BY MOUTH TWICE DAILY ferrous sulfate 325 mg (65 mg iron) tablet 325 mg PO DAILY Patient Comments: TAKE 1 TABLET BY MOUTH EVERY DAY metformin 1,000 mg tablet 1,000 mg PO BID propranolol 120 mg capsule,extended release 24 hr 120 mg PO DAILY Patient Comments: TAKE 1 CAPSULE BY MOUTH ONCE DAILY escitalopram oxalate 10 mg tablet 10 mg PO DAILY Patient Comments: TAKE 1 TABLET BY MOUTH ONCE DAILY ezetimibe 10 mg tablet 10 mg PO DAILY Patient Comments: TAKE 1 TABLET BY MOUTH ONCE DAILY FOR CHOLESTEROL Januvia 50 mg tablet 50 mg PO DAILY Patient Comments: TAKE 1 TABLET BY MOUTH ONCE DAILY Referrals Follow up/Referrals: Davina Fung [Primary Care Provider] - See instructions Activity Restrictions/Add. Instructions Additional Instructions/Restrictions: You were evaluated in the emergency department today. At this time, we feel that you likely have claudication. Please follow-up close with your primary care provider over the next 48 hours, as they can help refer you to vascular surgery for evaluation. Also keep your follow-up with your ground crew lines person tomorrow. Return to the emergency department for new or worsening symptoms. Clinical Impressions Clinical Impression: Claudication, Hypomagnesemia, Creatinine elevation Instructions Patient Instructions: Intermittent Claudication (Alternative Therapy), DI for Hypomagnesemia Print Language Print Language: Khmer Discharge ED Provider: Irma Velez General Adult HPI General Chief complaint: Extremity Injury, Lower Stated complaint: muscles in legs hurt and she cant walk Time Seen by Provider: 01/01/25 18:09 Mode of Arrival: Wheelchair Source of Information: Patient and Spouse Description of Symptoms (Recalled from ER Triage Doc. by RN): pt states that for the past year she has been having bilaeral leg cramp and weakness and that it normally goes away and now it isnt. pt is alox4 and vitals are WNL upon triage, pt states its affecting her ability to walk and now she more or less is just shuffling across the floor History of Present Illness HPI narrative: This patient is a 74-year-old female with a history of tobacco dependence, COPD, GERD, type 2 diabetes, macular degeneration presenting to the emergency department for evaluation with concern for bilateral leg cramping and weakness that normally goes away but now is not. Patient states that she is been dealing with this for a long time, at least a year. She states that whenever she walks, she gets cramping in both of her legs that goes away if she rests. She states that yesterday, she was walking at [facility] with her and trying to keep up with him when she developed significant cramping. Today, she states it feels like she cannot control her legs and is having trouble walking because of that. She notes it feels like she is shuffling across the floor. She has no pain at rest. No numbness, tingling, saddle anesthesia, or other concerns. Related Data Home Medications ?Medication ?Instructions ?Recorded ?Confirmed amitriptyline 25 mg tablet 25 mg PO QID 01/01/25 01/01/25 amlodipine 5 mg tablet 5 mg PO DAILY 01/01/25 01/01/25 escitalopram oxalate 10 mg tablet 10 mg PO DAILY 01/01/25 01/01/25 ezetimibe 10 mg tablet 10 mg PO DAILY 01/01/25 01/01/25 ferrous sulfate 325 mg (65 mg 325 mg PO DAILY 01/01/25 01/01/25 iron) tablet hydrochlorothiazide 50 mg tablet 50 mg PO DAILY 01/01/25 01/01/25 losartan 50 mg tablet 100 mg PO DAILY 01/01/25 01/01/25 metformin 1,000 mg tablet 1,000 mg PO BID 01/01/25 01/01/25 pantoprazole 40 mg tablet,delayed 40 mg PO BID 01/01/25 01/01/25 release propranolol 120 mg capsule,24 120 mg PO DAILY 01/01/25 01/01/25 hr,extended release sitagliptin phosphate 50 mg tablet 50 mg PO DAILY 01/01/25 01/01/25 (Januvia) Allergies Allergy/AdvReac Type Severity Reaction Status Date / Time Penicillins (PENICILLINS) Allergy Intermediate I-RASH Verified 07/08/24 13:28 sulfamethoxazole (From Allergy Rash Verified 01/01/25 18:02 Bactrim) trimethoprim (From Bactrim) Allergy Rash Verified 01/01/25 18:02 [facility] Disclaimer: The information contained in this section may have been updated after the patient was seen, as this information can be updated by other users. Medical History Macular degeneration Anxiety and depression Dermatitis Tachycardia History of COVID-19 COPD (chronic obstructive pulmonary disease) Bronchitis History of gastroesophageal reflux (GERD) Allergies Surgical History History of hysterectomy History of tonsillectomy Family History Other Cervical cancer Social History Smoking Status: Current every day smoker alcohol intake: never current occupational status: retired Travel in the last 8 weeks: None Have you lived/traveled outside [place] in past 30 days?: No Contact w/someone who lives/traveled outside US past 30 days?: No Exposure to someone with infectious disease in past 14 days?: No Do you have a fever (greater than 100.4 F or 38 C)?: No Have you tested positive for COVID-19: No Exposed to someone with COVID-19 in past 14 days?: No Do you have a sore throat?: No Do you have a cough?: No Do you have any weakness?: No Do you have any diarrhea?: No Are you experiencing any unusual bleeding?: No Do you have any muscle aches/pain?: No Do you have any abdominal pain?: No Are you experiencing loss of taste or smell?: No ROS Obtained: Yes All systems reviewed & no additional complaints except as documented Physical Exam General General appearance: alert and in no apparent distress Head Head exam: atraumatic and normocephalic Eye Eye exam: Present normal appearance, PERRL and EOMI ENT ENT exam: Present normal exam, normal oropharynx, mucous membranes moist and normal external ear exam Neck Neck exam: Present normal inspection, full ROM and trachea midline; Absent tenderness Chest Chest inspection: Present normal inspection and symmetric chest wall rise; Absent tenderness Respiratory Respiratory exam: Present normal lung sounds bilaterally; Absent respiratory distress, wheezes, stridor or accessory muscle use Cardiovascular Cardiovascular exam: Present regular rate and normal rhythm Abdominal Exam Abdominal exam: Present soft; Absent distention, tenderness or guarding Extremities Exam Extremities exam: Present normal inspection, full ROM and normal capillary refill; Absent tenderness or edema Back Exam Back exam: Present normal inspection and full ROM; Absent tenderness Neurological Exam Neurological exam: Present alert, oriented X3 and CN II-XII intact; Absent motor sensory deficit Psychiatric Psychiatric exam: Present normal affect and normal mood Skin Skin exam: Present warm and dry Medical Decision Making Medical Records Medical records reviewed: Yes I reviewed the patient's medical records. Screening: Per USPSTF and CDC recommendations, given the prevalence of disease in our region, it is our hospital?s policy to screen for HIV and viral Hepatitis for all patients aged 18 and over and those with ongoing risk factors. Tristen Inquiry Pt receiving controlled substance: No Vital Signs: 01/01/25 17:54 01/01/25 20:21 Temperature 98.6 F 97.9 F Temperature Source Oral Pulse Rate 71 Pulse Rate [Left Radial] 75 Respiratory Rate 20 20 Blood Pressure 122/52 L Blood Pressure [Right Arm] 131/51 L Blood Pressure Mean [Right Arm] 77 02 Sat by Pulse Oximetry 95 Oxygen Delivery Method Room Air Lab Data Lab results reviewed: Yes I reviewed the patient's lab results. Lab Results 01/01/25 18:10: WBC 5.5, RBC 3.46 L, Hgb 10.5 L, Hct 31.2 L, MCV 90.2, MCH 30.3, MCHC 33.7, RDW 17.3, Plt Count 288, MPV 9.8, Neut % (Auto) 54.1, Lymph % (Auto) 28.6, Tompkins % (Auto) 12.2 H, Eos % (Auto) 4.2, Baso % (Auto) 0.4, Neut # (Auto) 3.0, Lymph # (Auto) 1.6, Tompkins # (Auto) 0.7, Eos # (Auto) 0.2, Baso # (Auto) 0.0, Sodium 135 L, Potassium 4.6, Chloride 100, Carbon Dioxide 24, Anion Gap 15.6 H, BUN 35 H, Creatinine 2.00 H, Estimated Creat Clear 20, Estimated GFR 24 L, Est GFR ( Amer) 29 L, Glucose 177 H, Calcium 8.9, Phosphorus 4.8 H, Magnesium 1.3 L, Total Bilirubin 0.1 L, AST 31, ALT 26, Alkaline Phosphatase 65, Total Creatine Kinase 41, Total Protein 6.5, Albumin 3.9, Globulin 2.6, Albumin/Globulin Ratio 1.5, TSH 2.70, Thyroxine (T4) 10.0 01/01/25 18:17: VBG pH 7.33, VBG pCO2 44.8, VBG pO2 50.7 H, VBG HCO3 23.2, VBG Total CO2 24.6, VBG O2 Saturation 83.6 H, VBG Base Excess -2.7 L, VBG Lactic Acid 3.4 H 01/01/25 18:10 01/01/25 18:10 Orders (Tests/Meds): ED MEDICATIONS Discontinued Medications Generic Name Dose Route Start Last Admin Trade Name Freq PRN Reason Stop Dose Admin Lactated Ringer's 500 mls @ 999 mls/hr 01/01/25 18:38 01/01/25 18:46 Lactated Ringer's 1000 Ml Bag IV 01/01/25 19:08 999 mls/hr .Q31M ONE Administration Magnesium Sulfate 2 gm in 50 mls @ 50 mls/hr 01/01/25 18:38 01/01/25 18:46 Magnesium Sulfate 2gm/50ml Premix IV 01/01/25 19:37 50 mls/hr ONCE ONE Administration ORDERS Category Date Time Status CK [Creatine Kinase] Stat Lab 01/01/25 18:10 Completed Complete Blood Count Auto Diff Stat Lab 01/01/25 18:10 Completed Comprehensive Metabolic Panel Stat Lab 01/01/25 18:10 Completed MAG [Magnesium] Stat Lab 01/01/25 18:10 Completed PHOS [Phosphorous] Stat Lab 01/01/25 18:10 Completed T4 (Thyroxine) Stat Lab 01/01/25 18:10 Completed TSH [Thyroid Stimulating Hormone] Stat Lab 01/01/25 18:10 Completed VBG [Venous Blood Gas] Stat RT 01/01/25 18:17 Completed Medical Decision Narrative: In summary, this patient is a 74-year-old female presenting to the Emergency Department for evaluation of cramping in both of her legs that happens with walking, goes away at rest. It is worse today after having to keep up with her at [facility] yesterday, now she feels like her legs are weak and difficult to control. Differential diagnoses considered include but are not limited to vascular claudication, neurogenic claudication, arterial insufficiency, venous insufficiency, peripheral neuropathy, rhabdomyolysis, electrolyte derangements. Ruling out the most morbid conditions drove assessment. It should be noted patient's history includes COPD, tobacco dependence, CKD, hypertension, diabetes which may or may not be at goal therapy. This complicates all aspects of care by increasing patient's risk for morbidity. On exam, the patient is lying in bed in no acute distress. She has 2+ pulses distally in her bilateral lower extremities with normal cap refill, normal sensation. All compartments are soft. I feel she likely has claudication, whether its vascular or neurogenic. She has risk factors for arterial insufficiency in her lower extremities, including tobacco dependence and diabetes. Workup included CBC, CMP, lactic acid, CK, magnesium, phosphorus. I considered obtaining imaging, such as CT angiogram of the abdomen and pelvis with runoff to the lower extremities, however given that she is warm, well-perfused, and has good pulses, I do not feel this is indicated emergently as it would likely not exchange clerk. Labs obtained demonstrate anemia with a hemoglobin of 10.5, no indication for emergent transfusion. Chemistry demonstrates very mildly elevated lactic acid with a normal CK. She looks a little bit dry based on lab evaluation with mildly elevated BUN and anion gap compared to her prior, though we do not have a very recent one for comparison. She was given a 500 cc bolus of IV fluids. She also has hypomagnesemia with magnesium 1.3, for which she is given IV magnesium repletion. She tolerated this well with no changes in vital signs or cardiac telemetry during this. On reassessment, she felt a lot better and is able to ambulate. Given this, I feel that she is appropriate for discharge home with close outpatient follow-up for further evaluation management of likely claudication as well as her hypomagnesemia. Strict return precautions were given Critical Care Critical Care Time Critical Care Time: Yes Attestation: On 01/01/25, the high probability of a clinically significant, sudden or life threatening deterioration of the following system(s) required my full and direct attention, intervention and personal management. The time I documented below is in addition to time spent performing reported procedures but includes the following listed in this critical care notation. Total Time Total Critical Care Time: 35
[2025-01-01 20:21] VITALS: BP 122/52; PULSE 71; RESP 20; TEMP 36.6; O2SAT 95
[2025-01-01 22:28] LABS: Reflex Lactic Add Lactic Reflex
== END 2025-01-01 20:30 | disposition home or self-care (01) ==
PROVIDERS: Emergency Provider Emergency Medicine; PCP Nurse Practitioner Family
DX: M62.831 Muscle spasm of calf (principal); E83.42 Hypomagnesemia; I73.9 Peripheral vascular disease, unspecified; R79.89 Other specified abnormal findings of blood chemistry
CPT/HCPCS: 80053; 82550; 82803; 83735; 84100; 84436; 84443; 85025; 96365; 99291; J3475; J7120

== ENCOUNTER 2025-01-10 14:00 | Outpatient (CLI) | payer MEDICARE, OTHER, SELFPAY ==
--- NOTE | 2025-01-10 14:03 | US_ITS ---
FINAL REPORT CLINICAL HISTORY: CKD FINDINGS: Limited sonographic images of the urinary bladder were obtained. Bladder volume filled is 18.19 mL. There is no postvoid residual. IMPRESSION: No evidence of postvoid residual. Reviewed, Interpreted and Dictated by Rick Zamudio MD Transcribed by Mili Randolph Authenticated and [facility]
== END 2025-01-10 23:59 | disposition home or self-care (01) ==
LOC: RAD 14:01
PROVIDERS: PCP Nurse Practitioner Family; Visit Provider Internal Medicine Nephrology
DX: N18.31 Chronic kidney disease, stage 3a (principal)
CPT/HCPCS: 76857

== ENCOUNTER 2025-04-17 12:47 | Outpatient (CLI) | payer MEDICARE, OTHER, SELFPAY ==
--- NOTE | 2025-04-17 12:51 | MM_ITS ---
PROCEDURE INFORMATION: Exam: MG Bilateral Screening 3D Mammography Exam date and time: 04/17/2025 1:09 PM Age: 75 years old Clinical indication: Screening mammogram TECHNIQUE: Imaging protocol: Bilateral Screening tomosynthesis and 2D mammography including computer-aided detection (CAD) when performed. COMPARISON: 1. MG MM DIG SCREENING MAMM BI W/CAD 04/11/2024 3:07 PM 2. MG MM DIG SCREENING MAMM BI W/CAD 03/24/2023 1:19 PM 3. MG MM DIG SCREENING MAMM BI W/CAD 02/20/2022 3:51 PM 4. MG MM DIG SCREENING MAMM BI W/CAD 02/19/2021 1:28 PM FINDINGS: MAMMOGRAPHY: Breast composition: There are scattered areas of fibroglandular density. Mass: Stable benign-appearing subcentimeter nodules are present in the right breast. No new or morphologically suspicious nodule has developed to suggest malignancy. Architectural distortion: No new or suspicious architectural distortion. Calcifications: No new or suspicious calcifications are present Asymmetric density: No new or suspicious asymmetric density is present Skin thickening: None. Axillary adenopathy: None. IMPRESSION: No mammographic evidence of malignancy. Recommend annual screening mammography unless otherwise clinically indicated. ASSESSMENT: BI-RADS category 2: Benign.
--- NOTE | 2025-04-17 12:51 | XR_ITS ---
FINAL REPORT CLINICAL HISTORY: .screening COMPARISON: None FINDINGS: Using L1-4, the bone mineral density of the spine is 0.770 g/cm2, corresponding to T-score of -2.5, consistent with osteoporosis. Using the left hip, the bone mineral density of the total hip is 0.642 g/cm2, corresponding to a T-score of -2.5, consistent with osteoporosis. Using the right hip, the bone mineral density of the total hip is 0.699 g/cm2, corresponding to a T-score of -2.0, consistent with osteopenia. FRAX not reported because some T-score at or below-2.5. NOTE: T-score: Standard deviation compared with peak bone mass of young adult mean. *Following the recommendations of the International Society of Bone densitometry, classification of hip BMD is based on the lower of two T-scores; total hip or femoral neck. IMPRESSION: Diminished bone mineral density consistent with osteoporosis. Reviewed, Interpreted and Dictated by Rick Zamudio MD Transcribed by Candy Guzman Authenticated and . [facility]
--- OUTSIDE RECORDS SUMMARY | 2025-04-17 12:51 | XMS_ITS | Clinical Summary ---
Author Organization Healthcare Address [address] [place] [address] Care Team Providers Care Seo Marketing Specialist Name Role Phone Pcp, No Primary Care Provider Unavailabl e Allergies Active Allergy Reactions Criticality Noted Date Comments Penicillins Rash Medium 05/16/2021 Medications amitriptyline (Elavil) 25 MG tablet Take 1 tablet (25 mg) by mouth 4 (four) times a day. 4 Active amLODIPine (Norvasc) 5 MG tablet Take 1 tablet (5 mg) by mouth 1 (one) time each day. 4 Active propranolol LA (Inderal LA) 120 MG 24 hr capsule Take 1 capsule (120 mg) by mouth 1 (one) time each day. 4 Active hydroCHLOROthia zide (HYDRODiuril) 50 MG tablet Take 1 tablet (50 mg) by mouth 1 (one) time each day. 4 Active losartan (Cozaar) 50 MG tablet Take 2 tablets (100 mg) by mouth 1 (one) time each day. 4 Active metFORMIN (Glucophage) 1000 MG tablet Take 1 tablet (1,000 mg) by mouth 2 (two) times a day. 4 Active pantoprazole (Protonix) 40 MG EC tablet Take 1 tablet (40 mg) by mouth 2 (two) times a day. 4 Active Januvia 50 MG tablet Take 1 tablet (50 mg) by mouth 1 (one) time each day. 4 Active escitalopram (Lexapro) 10 MG tablet Take 1 tablet (10 mg) by mouth 1 (one) time each day. 4 Active ezetimibe (Zetia) 10 MG tablet take 1 tablet by mouth once daily for cholesterol 4 Active Multiple Vitamins-Minera ls (RA VISION-SAMM PRESERVE PO) Take by mouth. Ac tive famotidine (Pepcid) 20 MG tablet Take by mouth. Activ e Active Problems Problem Noted Date Diagnosed Date COVID-19 virus test result unknown 08/22/2024 Family History Medical History Relation Name Comments Cataracts Mother Diabetes Sister Relation Name Status Comments Mother Sister Social History Tobacco Use Types Packs/Day Years Used Date Smoking Tobacco: Every Day Cigarettes 1 55.7 Started: 08/22/1969 Smokeless Tobacco: Never Tobacco Cessation:Ready to Q uit: Not Asked; Counseling Given: Not Answered Comments Unknown Sex and Gender Information Value Date Recorded Sex Assigned at Not on file Legal Sex Female 10:27 AM EDT Gender Identity Not on file Sexual Orientation Not on file Plan of Treatment Health Maintenance Due Date Last Done Comments [facility]-Bone Density Scan 1949 [facility]-Depression Screening 1949 [facility]-Hepatitis C Screening 1950 [facility]-Medicare Annual Wellness (AWV) 1949 [facility]-Infant/Child/Adol SDOH Screenings 1949 [facility]- SDOH Screenings 1967 [facility]-Adult SDOH Screenings 1967 [facility]-DTaP,Tdap,and Td Vaccines (1 - Tdap) 1968 [facility]-Lung Cancer Screening 1999 [facility]-Pneumococcal Vaccine: 50+ Years (2 of 2 - PPSV23) 03/24/2018 01/27/2018 [id number] Vaccine ( season) 2024 06/17/2022, 09/25/2021, 12/06/2020, Additional history exists [facility]-Influenza Vaccine (#1) 05/15/202507/11, 06/27/2023, 06/23/2022, Additional history exists [facility]-Hepatitis A Vaccines Aged Out 07/17/2019, 11/2017 No longer eligible based on patient's age to complete this topic [facility]-RSV Vaccine: 60+ Years or Completed 06/28/2023 [facility]-Zoster Vaccines Completed 08/12/2024, 05/31/202 4 HPV Vaccines Aged Out No longer eligi ble based on patient's age to complete this topic [facility]-HIB Vaccines Aged Out No longer e ligible based on patient's age to complete this topic [facility]-IPV Vaccines Aged Out No longer e ligible based on patient's age to complete this topic [facility]-Rotavirus Vaccines Aged Out No lo nger eligible based on patient's age to complete this topic [place] [address] Care Teams Seo Marketing Specialist Relationship Specialty Start Date End Date Sheron Reyes [address] [place] [address] PCP - General Family Medicine 08/22/24
--- NOTE | 2025-04-17 12:52 | CT_ITS ---
FINAL REPORT TECHNIQUE: Axial CT images of the chest were obtained without contrast. Low-dose protocol was utilized. Coronal and sagittal reconstructed images were obtained and reviewed. This study was performed with techniques to keep radiation doses as low as reasonably achievable (ALARA). Individualized dose reduction techniques using automated exposure control or adjustment of mA and/or kV according to the patient's size were employed. CLINICAL HISTORY: LUNG SCREENING, PATIENT SMOKES 1 PPD AND HAS BEEN A SMOKER FOR 65 YEARS, PATIENT HAS COPD. COMPARISON: 04/11/2024 FINDINGS: CT CHEST WITHOUT, LOW DOSE SCREENING CTDl vol(mGy): 2.90 DLP (mGy-cm): 88.56 Current smoker 65 pack year history There is no axillary adenopathy. There is no significant mediastinal mass or adenopathy. There is no hilar adenopathy. There is a calcified subcarinal lymph node. The heart size is normal. There is no pericardial or pleural effusion. On the lung window images, again seen is a noncalcified nodule in the right upper lobe measuring 4 mm, image 34 series 4. This is entirely stable. There is a low-attenuation nodule in the left adrenal gland measuring 1.2 cm in diameter which probably represents an adenoma. Limited images of the upper abdomen are unremarkable. IMPRESSION: Lung RADS category 1. Recommend 12 month follow-up low-dose chest CT per Fleischner criteria. Reviewed, Interpreted and Dictated by Rick Zamudio MD Transcribed by Charmaine Roberts Authenticated and [facility]
== END 2025-04-17 23:59 | disposition home or self-care (01) ==
LOC: RAD 12:49
PROVIDERS: PCP Nurse Practitioner Family; Visit Provider Nurse Practitioner Family
DX: Z12.31 Encounter for screening mammogram for malignant neoplasm of breast (principal); R92.323 Mammographic fibroglandular density, bilateral breasts; N63.10 Unspecified lump in the right breast, unspecified quadrant; M81.0 Age-related osteoporosis without current pathological fracture; Z12.2 Encounter for screening for malignant neoplasm of respiratory organs; F17.210 Nicotine dependence, cigarettes, uncomplicated; R91.1 Solitary pulmonary nodule; J44.9 Chronic obstructive pulmonary disease, unspecified
CPT/HCPCS: 71271; 77063; 77067; 77080

== ENCOUNTER 2025-05-01 11:17 | Day surgery (SDC) | payer MEDICARE, OTHER, SELFPAY ==
[2025-04-28 12:08] VITALS: BMI 22.3
--- NOTE | 2025-05-01 05:39 | EXP.HP ---
History of Present Illness *Admission Date: 05/01/25 *Reason for visit:: Positive Cologuard *History of present illness: Mrs. Cisneros is a 75-year-old female who is here for screening colonoscopy secondary to a positive Cologuard. The examination is deemed medically necessary for screening for colon cancer. The patient has been seen, interviewed and examined prior to the procedure by both myself and the anesthesia provider. [facility] Disclaimer: The information contained in this section may have been updated after the patient was seen, as this information can be updated by other users. Medical History Macular degeneration Anxiety and depression Dermatitis Tachycardia History of COVID-19 COPD (chronic obstructive pulmonary disease) Bronchitis History of gastroesophageal reflux (GERD) Allergies Surgical History History of hysterectomy History of tonsillectomy Family History Other Cervical cancer Lung cancer Social History (Updated 05/01/25 @ 13:02 by Paul Hoyos CRNA) Smoking Status: Current every day smoker alcohol intake: never substance use type: denies use current occupational status: retired Travel in the last 8 weeks?: None caffeine: No Have you lived/traveled outside US in past 30 days?: No Contact w/someone who lives/traveled outside US past 30 days?: No Exposure to someone with infectious disease in past 14 days?: No Do you have a fever (greater than 100.4 F or 38 C)?: No Have you tested positive for COVID-19?: No Exposed to someone with COVID-19 in past 14 days?: No Do you have a sore throat?: No Do you have a cough?: No Do you have any weakness?: No Are you experiencing any nausea/vomitting?: No Do you have any diarrhea?: No Are you experiencing any unusual bleeding?: No Do you have any muscle aches/pain?: No Do you have any abdominal pain?: No Are you experiencing loss of taste or smell?: No Review of Systems Review of Systems Review of systems (narrative): Negative *Cardiovascular Comments: Negative *Gastrointestinal Comments: Negative *Genitourinary Comments: Negative *Musculoskeletal Comments: Negative *Neurologic Comments: Negative Meds Home Medications and Allergies Home Medications ?Medication ?Instructions ?Recorded ?Confirmed ?Type amitriptyline 25 mg tablet 25 mg PO QID 01/01/25 05/01/25 History amlodipine 5 mg tablet 2.5 mg PO BID 01/01/25 05/01/25 History escitalopram oxalate 10 mg tablet 10 mg PO DAILY 01/01/25 05/01/25 History ezetimibe 10 mg tablet 10 mg PO DAILY 01/01/25 05/01/25 History hydrochlorothiazide 50 mg tablet 50 mg PO DAILY 01/01/25 05/01/25 History losartan 50 mg tablet 100 mg PO DAILY 01/01/25 05/01/25 History metformin 1,000 mg tablet 1,000 mg PO BID 01/01/25 05/01/25 History pantoprazole 40 mg tablet,delayed 40 mg PO BID 01/01/25 05/01/25 History release propranolol 120 mg capsule,24 120 mg PO DAILY 01/01/25 05/01/25 History hr,extended release sitagliptin phosphate 50 mg tablet 25 mg PO DAILY 01/01/25 05/01/25 History (Januvia) sodium,potassium,mag sulfates 17.5 See Rx Instructions PO .COMPLEX 04/17/25 04/28/25 Rx gram-3.13 gram-1.6 gram oral soln #354 mL (Suprep Bowel Prep Kit) aspirin 81 mg capsule 81 mg PO DAILY 05/01/25 05/01/25 History famotidine 20 mg tablet 20 mg PO BID 05/01/25 05/01/25 History omega-3 fatty acids 500 mg PO DAILY 05/01/25 05/01/25 History vitamins A,C,U-vyay-yerbnc 2,148 1 tab PO BID 05/01/25 05/01/25 History mcg-113 mg-45 mg-17.4 mg tablet (PreserVision AREDS) New Prescriptions to Start Prescriptions: Allergies Allergy/AdvReac Type Severity Reaction Status Date / Time Penicillins (PENICILLINS) Allergy Intermediate I-RASH Verified 05/01/25 11:31 sulfamethoxazole (From Allergy Rash Verified 05/01/25 11:31 Bactrim) trimethoprim (From Bactrim) Allergy Rash Verified 05/01/25 11:31 Exam Data for Last 24 hours I & O for Last 24 hours: Intake & Output 04/28/25 04/29/25 04/30/25 05/01/25 23:59 23:59 23:59 23:59 Weight 118 lb *Routine HEENT Exam Head: Present normocephalic Eye: Present EOMI and PERRL ENT: Present mucous membranes moist *Routine Neck Exam Neck: Present supple *Routine Respiratory Exam Respiratory: Present CTA bilaterally *Routine Cardiovascular Exam Cardiovascular: Present RRR *Routine Abdominal Exam Abdominal: Present soft and normoactive bowel sounds; Absent tenderness *Routine Rectal Exam Rectal:: deferred *Routine Genitalia Exam Genitalia:: deferred *Routine Extremities Exam Extremities: Absent cyanosis, clubbing or edema *Routine Skin Exam Skin: Present warm; Absent rash *Routine Neurological Exam Neurological: Present alert and oriented X3 Assessment and Plan *Assessment and plan (1) Positive colorectal cancer screening using Cologuard test: Status: Acute Category: Medical Code(s): R19.5 - Other fecal abnormalities Plan A/P: 1. Positive Cologuard is the preprocedural diagnosis. The patient will be anesthetized/sedated using MAC sedation. The patient has been seen and examined. Cardiac and lung assessment prior to the examination is stable. Proceed with planned screening colonoscopy.
[2025-05-01 11:41] VITALS: BP 115/73; PULSE 64; RESP 18; TEMP 36.2; O2SAT 97
[2025-05-01] MEDS: LACTATED RINGERS 1000ML 1,000 ML 50 ML IV (11:57)
[2025-05-01 12:00] LABS: POC Glucose,Bedside 151 (70-110)
--- NOTE | 2025-05-01 13:01 | P.PNANES_ITS ---
[facility] Disclaimer: The information contained in this section may have been updated after the patient was seen, as this information can be updated by other users. Medical History Macular degeneration Anxiety and depression Dermatitis Tachycardia History of COVID-19 COPD (chronic obstructive pulmonary disease) Bronchitis History of gastroesophageal reflux (GERD) Allergies Surgical History History of hysterectomy History of tonsillectomy Family History Other Cervical cancer Lung cancer Social History (Updated 05/01/25 @ 11:55 by Matilda Adair RN) Smoking Status: Current every day smoker alcohol intake: never substance use type: denies use current occupational status: retired Travel in the last 8 weeks?: None caffeine: No [facility] Anesthesia Checklist Patient Identification Patient Identification: Arm Band and Verbal (Name & ) Structural Data Admitted From: Home Planned Operative Procedure/s: colonoscopy Verified Documents: Surgical Consent NPO Status Verified Time NPO: 00:00 Additional verifications Anesthesia Reactions: No Airway Assessment Mallampati Score:: Class II C-Spine Mobility Assessed: Yes TMJ Mobility Assessed: Yes Dentition: Dentures-poor fitting Neurological Assessment Level of Consciousness: Awake, Alert and Appropriate Hx Seizures: No Numbness or tingling in extremities: No Anesthesia Plan Anesthesia Risk discussed: Yes Anesthesia Plan: Verified ASA Class: III Anesthesia Type: MAC
--- NOTE | 2025-05-01 13:12 | P.PCN_ITS ---
[facility] Procedure Note Date: 05/01/25 Time: 13:47 Procedure Note:: Colonoscopy Procedure Report: Colonoscopy with cold snare polypectomy Endoscopist: Vaibhav Ochoa II, MD Referring physician: MIMA Orozco Date of Procedure: May 01, 2025 Equipment: Olympus [id number] adult colonoscope Sedation: MAC sedation Indication: Mrs. Cisneros is a 75-year-old female who is here for colonoscopy secondary to a positive Cologuard test. This is her first colonoscopy. She reports no abdominal pain, change in her bowel habits or family history of colon cancer. 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 She also has external hemorrhoids or prolapsed hemorrhoids with rare spotting of blood on the tissue. She has lost 10 to 12 pounds in the last year unintentionally. Procedure: Prior to the procedure, a history and physical exam was performed, and patient's medications and allergies were reviewed. The risks, benefits and alternatives of the sedation and procedure were discussed with the patient. All questions were answered and informed consent was obtained. The patient was brought to the procedure room. Patient identification and proposed procedure were verified by the physician and the nurse. The patient was placed in a left lateral decubitus position and the scope was passed under direct vision. Throughout the procedure, the patient's blood pressure, pulse, and oxygen saturations were monitored continuously. The colonoscopy was accomplished without difficulty. The patient tolerated the procedure well. Findings: On digital rectal examination there was normal rectal tone. There were no external hemorrhoids. There were external hemorrhoidal tags. The colonoscope was introduced through the anal canal to the rectum and advanced to the cecum. The ileocecal valve and appendiceal orifice were identified. The scope was advanced a short distance into the ileum which appeared grossly normal. The scope was then withdrawn into the colon. There was a single 5 mm polyp in the ascending colon removed via cold snare polypectomy. The remaining cecum, ascending, transverse, descending, sigmoid and rectum were grossly normal. There were no mucosal abnormalities identified. Upon retroflexion within the rectum there were grade 1 internal hemorrhoids. The preparation was excellent throughout with [place] Preparation Score of 9. The cecal time was 12 minutes. Impression: 1. Diminutive ascending colon polyp Plan: I will follow-up the polyp histology. She will not require any further preventive/surveillance colonoscopy. I would encourage psyllium fiber/Metamucil on a regular and daily basis.
[2025-05-01 14:06] VITALS: BP 138/78; PULSE 63; RESP 17; TEMP 36.4; O2SAT 99
[2025-05-01 14:16] VITALS: BP 144/72; PULSE 69; RESP 18; O2SAT 99
[2025-05-01 14:26] VITALS: BP 152/92; PULSE 71; RESP 17; O2SAT 99
[2025-05-01 14:36] VITALS: BP 159/85; PULSE 70; RESP 17; O2SAT 99
== END 2025-05-01 14:50 | disposition home or self-care (01) ==
PROVIDERS: PCP Nurse Practitioner Family; Visit Provider Internal Medicine Gastroenterology
PROC: 0DJD8ZZ Inspection of Lower Intestinal Tract, Via Natural or Artificial Opening Endoscopic (ICD-10-PCS; CPT 45378; principal; 2025-05-01 13:00)
DX: D12.2 Benign neoplasm of ascending colon (principal); K58.2 Mixed irritable bowel syndrome; J44.9 Chronic obstructive pulmonary disease, unspecified; K21.9 Gastro-esophageal reflux disease without esophagitis; F17.200 Nicotine dependence, unspecified, uncomplicated; Z88.1 Allergy status to other antibiotic agents; Z88.2 Allergy status to sulfonamides; Z79.84 Long term (current) use of oral hypoglycemic drugs; Z79.82 Long term (current) use of aspirin; Z79.899 Other long term (current) drug therapy
CPT/HCPCS: 45385; 82962; J2003; J2704; J7120